=== PATIENT | female | born 1960 | race Caucasian/White ===

== ENCOUNTER 2018-08-29 11:54 | Emergency (ER) | payer SELFPAY ==
[~2018-08-29] VITALS: Ht 172.7 cm; Wt 59.0 kg
[~2018-08-29 11:54] MED LIST: CLONAZEPAM0.5 MG PO; FLAGYL500 MG PO; Ondansetron Oral Disintegratin PO; PANTOPRAZOLE SO40 MG PO; REGLAN10 MG PO; RESTORIL15 MG PO; TEMAZEPAM15 MG PO; VANCOCIN HCL250 MG PO
[2018-08-29] MEDS ORDERED: ONDANSETRON HCL INJ 2 MG/ML VIAL IV STA (12:53)
[2018-08-29] MEDS ORDERED: MAGNESIUM SULFATE 2GM/50ML 50 ML IV STA (12:53)
[2018-08-29 13:02] LABS: BASOPHILS # (AUTO) 0.1 (0.0-0.1); BASOPHILS % 1.2 % (0.0-1.0); EOSINOPHILS # (AUTO) 0.4 (0.0-0.4); EOSINOPHILS % 6.1 % (0.0-6.0); HEMATOCRIT 36.7 % (34.2-44.1); LYMPHOCYTES # (AUTO) 2.6 (1.0-3.2); LYMPHOCYTES % 43.8 % (18.0-39.1); MEAN CORPUSCULAR HEMOGLOBIN 32.3 pg (28-32); MEAN CORPUSCULAR HGB CONC 32.7 g/dL (31-35); MEAN CORPUSCULAR VOLUME 98.9 fL (81-99); MONOCYTES # (AUTO) 0.9 (0.2-0.8); NEUTROPHILS % 33.6 % (38.7-80.0); PLATELET COUNT 175 x10e3/uL (140-360); RED BLOOD COUNT 3.71 x10e6/uL (3.6-5.1); RED CELL DISTRIBUTION WIDTH 15.8 % (11.7-14.4)
[2018-08-29 13:06] LABS: INR 0.84; PROTHROMBIN TIME 12.3 seconds (11.9-14.5)
[2018-08-29 13:14] LABS: ALANINE AMINOTRANSFERASE < 6 IU/L (0-55); ALBUMIN 3.2 g/dL (3.5-5.0); ALKALINE PHOSPHATASE 83 IU/L (40-150); ANION GAP 13.4 mmol/L (8-16); BLOOD UREA NITROGEN 14 mg/dL (7-26); BUN/CREATININE RATIO 19 (6-25); CALCIUM 9.3 mg/dL (8.4-10.2); CARBON DIOXIDE 28 mmol/L (22-29); CHLORIDE 106 mmol/L (98-107); CREATININE, SERUM 0.74 mg/dL (0.57-1.11); EST GLOMERULAR FILTRATION RATE > 60 ML/MIN (60-); GLUCOSE 81 mg/dL (74-118); LIPASE 21 U/L (8-78); POTASSIUM 4.4 mmol/L (3.5-5.1); SODIUM 143 mmol/L (136-145)
--- NOTE | 2018-08-29 13:26 | Diagnostic Imaging Report ---
EXAM: XR CHEST 1 VIEW DATE: 08/29/2018 12:53 PM INDICATION: Dizziness COMPARISON: 05/28/2018, no report available FINDINGS: Lines and Tubes: None Heart and Mediastinum: No acute cardiomediastinal findings. Stable mild hilar prominence. Lungs and Pleura: Minimal left basilar opacity suggesting atelectasis and/or scarring, similar to previous study. Bones and Soft Tissues: No acute findings. IMPRESSION: 1. No acute cardiopulmonary findings. Signed by: Dr. Leonel Ibarra MD on 08/29/2018 1:23 PM
[2018-08-29 13:33] LABS: THYROID STIMULATING HORMONE 1.507 uIU/mL (0.350-4.940)
[2018-08-29 14:33] LABS: BILIRUBIN,URINE NEGATIVE (NEGATIVE); CLARITY,URINE CLEAR (CLEAR); COLOR,URINE YELLOW (YELLOW); KETONES,URINE NEGATIVE (NEGATIVE); LEUKOCYTE ESTERASE ,URINE NEGATIVE (NEGATIVE); NITRITE,URINE NEGATIVE (NEGATIVE); PROTEIN,URINE DIPSTICK NEGATIVE (NEGATIVE); URINE UROBILINOGEN 0.2 mg/dL (0.2 - 1)
[2018-08-29 14:46] LABS: BACTERIA,URINE FEW /HPF; EPITHELIAL CELLS,URINE FEW /LPF; MUCUS,URINE FEW (RARE); RBC,URINE 0-5 /HPF (0-5); WBC,URINE (MAN) 0-5 /HPF (0-5)
[2018-08-29 15:19] VITALS: BP 109/66
--- OUTSIDE RECORDS SUMMARY | 2018-08-31 14:04 | XMS REPORT | Clinical Summary ---
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 Disp. Refills Start End Date Status Date albuterol (VENTOLIN Inhale 2 Puffs by mouth 30 g 3 07/28/20 Active HFA,PROVENTIL HFA,PROAIR every 4 hours as needed 17 HFA) 90 mcg/actuation for Wheezing or Shortness inhalerIndications: of Breath. Chronic obstructive pulmonary disease with acute exacerbation Melatonin 5 mg Take 1 capsule by mouth 30 capsule 3 12/07/19 Active capIndications: at bedtime nightly. 18 Psychophysiological insomnia chlordiazePOXIDE Take 1 capsule by mouth 2 60 capsule 0 12/18/19 Active (LIBRIUM) 25 mg times daily as needed for 18 capsuleIndications: New Anxiety. onset seizure, Anxiety sertraline (ZOLOFT) 50 mg Take 1 tablet by mouth 30 tablet 1 01/20/20 Active tabletIndications: daily. 18 Anxiety disorder, unspecified type traZODone (DESYREL) 50 mg Take 1 tablet by mouth 30 tablet 1 01/20/20 Active tabletIndications: nightly at bedtime as 18 Insomnia, unspecified needed for Sleep. type temazepam (RESTORIL) 15 Take 2 capsules by mouth 60 capsule 3 05/04/20 Active mg capIndications: nightly at bedtime as 18 Psychophysiological needed for Insomnia. insomnia BOOST GLUCOSE CONTROL Take 1 Package by mouth 3 60909 mL 3 05/04/20 Active oral liquidIndications: times daily. 18 Loss of weight albuterol 90 Inhale 2 Puffs by mouth 90 g 3 05/04/20 04/29/20 Active mcg/actuation every 4 hours as needed 18 19 inhalerIndications: for up to 360 days for Chronic obstructive Wheezing or Shortness of pulmonary disease with Breath. acute exacerbation busPIRone (BUSPAR) 10 mg Take 1 tablet by mouth 3 90 tablet 1 07/28/20 12/18/19 Discontin tabletIndications: times daily as needed for 17 18 ued Anxiety state, Other (anxiety). unspecified, Insomnia, unspecified mirtazapine (REMERON) 7.5 Take 1 tablet by mouth 30 tablet 1 07/28/20 12/18/19 Discontin mg tabletIndications: nightly at bedtime as 17 18 ued Anxiety state, needed for insomnia. unspecified, Insomnia, unspecified traZODone (DESYREL) 50 mg Take 1 tablet by mouth 30 tablet 1 12/18/19 01/20/20 Discontin tabletIndications: nightly at bedtime as 18 18 ued Insomnia, unspecified needed for Sleep. type azithromycin (ZITHROMAX) Take 1 tablet by mouth 14 tablet 0 05/04/20 05/04/20 Discontin 500 mg tabletIndications: daily for 14 days. 18 18 ued Lung infection BOOST GLUCOSE CONTROL Take 1 Package by mouth 3 35551 mL 3 05/04/20 05/04/20 Discontin oral liquidIndications: times daily. 18 18 ued Loss of weight albuterol 90 Inhale 2 Puffs by mouth 3 Month 3 05/04/20 05/04/20 Discontin mcg/actuation every 4 hours as needed Supply 18 18 ued inhalerIndications: for Wheezing or Shortness Chronic obstructive of Breath. pulmonary disease with acute exacerbation azithromycin (ZITHROMAX) Take 1 tablet by mouth 14 tablet 0 05/04/20 05/18/20 500 mg tabletIndications: daily for 14 days. 18 18 Lung infection Hospital, Clinic, or Ordered Dose Route Frequency Start End Date Status Other Facility Date Administered Medication penicillin g benzathine 1.2 Million IM ONCE 05/04/20 05/04/20 Ended (BICILLIN L-A) injection Units 18 18 1.2 Million UnitsIndications: Lung infection Active Problems Problem Noted Date Troponin leak - [place] - Peak troponin 0.273 - of note, measured in 12/30/2017 setting of seizure New onset seizure - in setting of EtOH withdrawal - pt on librium (? post 12/21/2017 ictal R hemiparesis - MRI brain only with mild microvascular ischemia) Glaucoma suspect 07/14/2014 Insomnia 04/25/2008 RBC abnormality 04/25/2008 Stress 03/14/2008 Depression 03/14/2008 Tobacco abuse Trichomonal vaginitis COPD (chronic obstructive pulmonary disease) Encounters Date Type Specialty Care Team Description 07/22/2018 Pharmacy Visit 07/06/2018 Pharmacy Visit 06/30/2018 Pharmacy Visit 05/10/2018 Pharmacy Visit 05/06/2018 Pharmacy Visit 05/05/2018 Pharmacy Visit 05/04/2018 Ancillary Radiology Timothy Munoz MD Lung infection Procedure 05/04/2018 Office Visit Family Practice Timothy Munoz MD Chronic obstructive pulmonary disease with acute exacerbation (Primary Dx); Cough; Loss of weight; Psychophysiological insomnia; Tobacco abuse; Reactive depression; ETOH abuse; Lung infection 05/04/2018 Orders Only [facility] Timothy Kelley MD Loss of weight 05/04/2018 Pharmacy Visit 01/21/2018 Pharmacy Visit 01/20/2018 Pharmacy Visit 01/19/2018 Office Visit Psychiatry Riki Arboleda MD Anxiety disorder, unspecified type (Primary Dx); Insomnia, unspecified type; Alcohol use disorder, severe, in early remission 01/19/2018 Pharmacy Visit 01/15/2018 Pharmacy Visit 01/12/2018 Telephone Jennifer Covington RN Medication Problem 12/30/2017 Orders Only [facility] Carlos A Bolaños MD Elevated troponin 12/30/2017 Orders Only [facility] Carlos A Bolaños MD Elevated troponin (Primary Dx) 12/29/2017 Telephone [facility] Practice Dudley Quintero RN Medication Reaction 12/29/2017 Nurse Triage Marion Sarkar RN 12/24/2017 Orders Only [facility] Timothy Kelley MD Anxiety state; Insomnia, unspecified 12/18/2017 Office Visit Family Timothy Kelley MD Screen for colon cancer Carlos A Dave MD (Primary Dx); Encounter for screening mammogram for malignant neoplasm of breast; Preventative health care; Needs flu shot; Insomnia, unspecified type; New onset seizure; Anxiety 12/18/2017 Orders Only Family Carlos A Bolaños MD Insomnia, unspecified type; New onset seizure 12/18/2017 Pharmacy Visit 12/07/2017 Orders Only [facility] Timothy Kelley MD Psychophysiological insomnia (Primary Dx) after 08/28/2017 Immunizations Name Dates Previously Given Next Due Hepatitis B Vaccine 01/04/2010, 12/04/2009 01/04/2010 Influenza Vaccine 09/11/2011, 09/14/2008 PPD 12/20/2012, 12/04/2009 Td Tetanus, diphtheria 03/14/2008 Toxoids Vaccine Family History Medical History Relation Name Comments Cancer Father lungs Arthritis Mother Relation Name Status Comments Father lung cancer (Age 75) Mother Alive Social History Tobacco Use Types Packs/Day Years Used Date Current Every Day Smoker Cigarettes 1 40 Smokeless Tobacco: Never Used Tobacco Cessation: Ready to Quit: No; Counseling Given: Yes Alcohol Use Drinks/Week oz/Week Comments Yes 20 Standard 12.0 states she has to have it to keep calm drinks or equivalent Sex Assigned at Date Recorded Not on file Last Filed Vital Signs Vital Sign Reading Time Taken Blood Pressure 119/77 05/04/2018 12:40 PM CDT Pulse 51 05/04/2018 12:40 PM CDT Temperature 36.8 C (98.3 F) 05/04/2018 12:40 PM CDT Respiratory Rate 20 05/04/2018 12:40 PM CDT Oxygen Saturation - - Inhaled Oxygen - - Concentration Weight 54.4 kg (120 lb) 05/04/2018 12:40 PM CDT Height 170.2 cm (5' 7") 05/04/2018 12:40 PM CDT Body Mass Index 18.79 05/04/2018 12:40 PM CDT Plan of Treatment Health Maintenance Due Date Last Done Comments Breast Cancer Scrn 06/20/2010 06/20/2009, 04/25/2008 (Yearly) Cervical Cancer Scrn (3 06/20/2012 06/20/2009 Yrs) IMM Influenza Seasonal 08/16/2018 Oct to January (>/=19 yrs) Colorectal Cancer Scrn 12/24/2018 12/24/2017, 05/02/2009 Annual (FIT/FOBT) Age 50 to 75 Procedures Procedure Name Priority Date/Time Associated Diagnosis Comments XRAY CHEST 2 VIEWS Routine 05/04/2018 Lung infection Results for this 2:00 PM CDT procedure are in the results section. TSH Routine 05/04/2018 Chronic obstructive Results for this 1:35 PM CDT pulmonary disease with procedure are in the acute exacerbation results section. Cough Loss of weight Psychophysiological insomnia Tobacco abuse Reactive depression ETOH abuse HEMOGLOBIN A1C Routine 05/04/2018 Chronic obstructive Results for this 1:35 PM CDT pulmonary disease with procedure are in the acute exacerbation results section. Cough Loss of weight Psychophysiological insomnia Tobacco abuse Reactive depression ETOH abuse UREA NITROGEN/CREA Routine 05/04/2018 Chronic obstructive Results for this 1:35 PM CDT pulmonary disease with procedure are in the acute exacerbation results section. Cough Loss of weight Psychophysiological insomnia Tobacco abuse Reactive depression ETOH abuse ELECTROLYTES Routine 05/04/2018 Chronic obstructive Results for this 1:35 PM CDT pulmonary disease with procedure are in the acute exacerbation results section. Cough Loss of weight Psychophysiological insomnia Tobacco abuse Reactive depression ETOH abuse GLUCOSE, FASTING Routine 05/04/2018 Chronic obstructive Results for this 1:35 PM CDT pulmonary disease with procedure are in the acute exacerbation results section. Cough Loss of weight Psychophysiological insomnia Tobacco abuse Reactive depression ETOH abuse LIVER PROFILE Routine 05/04/2018 Chronic obstructive Results for this 1:35 PM CDT pulmonary disease with procedure are in the acute exacerbation results section. Cough Loss of weight Psychophysiological insomnia Tobacco abuse Reactive depression ETOH abuse LIPID PROFILE Routine 05/04/2018 Chronic obstructive Results for this 1:35 PM CDT pulmonary disease with procedure are in the acute exacerbation results section. Cough Loss of weight Psychophysiological insomnia Tobacco abuse Reactive depression ETOH abuse CBC Routine 05/04/2018 Chronic obstructive Results for this 1:35 PM CDT pulmonary disease with procedure are in the acute exacerbation results section. Cough Loss of weight Psychophysiological insomnia Tobacco abuse Reactive depression ETOH abuse LIVER PROFILE Routine 12/25/2017 Preventative health care Results for this 12:14 PM PATIENT PARTNER procedure are in the results section. CBC/DIFF Routine 12/25/2017 Preventative health care Results for this 12:14 PM PATIENT PARTNER procedure are in the results section. BASIC METABOLIC PANEL Routine 12/25/2017 Preventative health care Results for this 12:14 PM PATIENT PARTNER procedure are in the results section. TSH Routine 12/25/2017 Preventative health care Results for this 12:14 PM PATIENT PARTNER procedure are in the results section. FREE T4 Routine 12/25/2017 Preventative health care Results for this 12:14 PM PATIENT PARTNER procedure are in the results section. HEMOGLOBIN A1C Routine 12/25/2017 Preventative health care Results for this 12:14 PM PATIENT PARTNER procedure are in the results section. LIPID PROFILE Routine 12/25/2017 Preventative health care Results for this 12:14 PM PATIENT PARTNER procedure are in the results section. OCCULT BLOOD ICT Routine 12/24/2017 Anxiety state Results for this 1:36 PM PATIENT PARTNER Insomnia, unspecified procedure are in the results section. after 08/28/2017 Results * XRAY CHEST 2 VIEWS (05/04/2018 2:00 PM) Impressions Performed At IMPRESSION: SMS Enlarged pulmonary arteries, which can be seen in the setting of pulmonary hypertension. Minimal reticulation lung base is suspected, suggesting chronic interstitial changes. CT chest could be obtained for further evaluation if indicated. Dictated By: Esther Thorpe MD, 05/04/2018 2:01 PM I have reviewed the study and agree with the findings in this report. Signed By: Leonel Ibarra MD, 05/04/2018 2:30 PM Narrative Performed At EXAM: XRAY CHEST 2 VIEWS SMS INDICATION: tobacco abuse with chronic cough and mucus COMPARISON: Chest radiograph from 04/25/2008 FINDINGS: PA and lateral views of the chest. Lines/tubes: None. Lungs:The lungs are well inflated.There is no evidence of pneumonia or pulmonary edema. Pleura:There is no pleural effusion or pneumothorax. Heart and mediastinum:The cardiac silhouette is normal. Pulmonary arteries are enlarged. Bones and soft tissues:No acute osseous abnormality.Soft tissues are unremarkable. Procedure Note Interface, Rad/Mammog In - 05/04/2018 2:35 PM CDT EXAM: XRAY CHEST 2 VIEWS INDICATION: tobacco abuse with chronic cough and mucus COMPARISON: Chest radiograph from 04/25/2008 FINDINGS: PA and lateral views of the chest. Lines/tubes: None. Lungs: The lungs are well inflated. There is no evidence of pneumonia or pulmonary edema. Pleura: There is no pleural effusion or pneumothorax. Heart and mediastinum: The cardiac silhouette is normal. Pulmonary arteries are enlarged. Bones and soft tissues: No acute osseous abnormality. Soft tissues are unremarkable. IMPRESSION IMPRESSION: Enlarged pulmonary arteries, which can be seen in the setting of pulmonary hypertension. Minimal reticulation lung base is suspected, suggesting chronic interstitial changes. CT chest could be obtained for further evaluation if indicated. Dictated By: Esther Thorpe MD, 05/04/2018 2:01 PM I have reviewed the study and agree with the findings in this report. Signed By: Leonel Ibarra MD, 05/04/2018 2:30 PM Performing Organization Address City/State/Zipcode Phone Number SMS * HEMOGLOBIN A1C (05/04/2018 1:35 PM) Only the most recent of 2 results within the time period is included. Hemoglobin A1c 5.8 4.3 - 6.1 % BT DI[facility]NOSTIC IMMUNOLOGY Est Average Gluc 119.8 mg/dL BT [facility]MMUNOLOG[facility] Specimen Blood Performing Organization Address [facility] Phone Number MISYS BT DIAGNOSTIC IMMUNOLOG[facility] * TSH (05/04/2018 1:35 PM) Only the most recent of 2 results within the time period is included. TSH 1.35 0.57 - 3.74 uIU/mL BT MAIN-STATION 1 Specimen Blood Performing Organization Address [facility] Phone Number MISYS BT MAIN-STATION 1 * ELECTROLYTES (05/04/2018 1:35 PM) Sodium 139 136 - 145 mmol/L BT MAIN-STATION 1 Potassium 4.0 3.5 - 5.1 mmol/L BT MAIN-STATION 1 Chloride 90 (L) 98 - 107 mmol/L BT MAIN-STATION 1 CO2 32 (H) 21 - 31 mmol/L BT MAIN-STATION 1 Anion Gap 17 BT MAIN-STATION 1 Specimen Blood Performing Organization Address [facility] Phone Number MISYS BT MAIN-STATION 1 * LIVER PROFILE (05/04/2018 1:35 PM) Only the most recent of 2 results within the time period is included. T Protein 7.3 6.0 - 8.3 g/dL BT MAIN-STATION 1 Albumin 3.9 3.7 - 5.3 g/dL BT MAIN-STATION 1 T Bilirubin 0.9 0.2 - 1.2 mg/dL BT MAIN-STATION 1 Alk Phos 161 (H) 34 - 104 U/L BT MAIN-STATION 1 AST 203 (H) 13 - 39 U/L BT MAIN-STATION 1 ALT 43 7 - 52 U/L BT MAIN-STATION 1 D Bilirubin 0.3 (H) 0.0 - 0.2 mg/dL BT MAIN-STATION 1 Specimen Blood Performing Organization Address [facility] Phone Number MISYS BT MAIN-STATION 1 * LIPID PROFILE (05/04/2018 1:35 PM) Only the most recent of 2 results within the time period is included. Cholesterol 193 mg/dL BT MAIN-STATION 1 Comment: REFERENCE RANGE: Desirable: <200 mg/dL Borderline: 200-240 mg/dL High Risk: >240 mg/dL Triglyceride 88 <150 mg/dL BT MAIN-STATION 1 Comment: REFERENCE RANGE: Normal: <150 mg/dL Borderline High: 150-199 mg/dL High: 200-499 mg/dL Very High: >vb=949 mg/dL HDL 109 mg/dL BT MAIN-STATION 1 Comment: Increased CHD risk: <40 mg/dL Decreased CHD risk: >60 mg/dL LDL 66 mg/dL BT MAIN-STATION 1 Comment: REFERENCE RANGE: Optimal: <100 mg/dL Near Optimal: 100-129 mg/dL Borderline High: 130-159 mg/dL High: 160-189 mg/dL Very High: >fo=567 mg/dL Specimen Blood Performing Organization Address [facility] Phone Number MISYS MAIN-STATION 1 * GLUCOSE, FASTING (05/04/2018 1:35 PM) Glucose, Fasting 108 (H) 74 - 106 mg/dL BT MAIN-STATION 1 Specimen Blood Performing Organization Address [facility] Phone Number MISYS MAIN-STATION 1 * CBC (05/04/2018 1:35 PM) WBC 7.3 4.5 - 11.0 K/uL BT MAIN-STATION 2 RBC 4.11 (L) 4.20 - 5.40 M/uL BT MAIN-STATION 2 Hemoglobin 12.5 12.0 - 16.0 g/dL BT MAIN-STATION 2 Hematocrit 37.1 37.0 - 47.0 % BT MAIN-STATION 2 MCV 90 82 - 92 fL BT MAIN-STATION 2 MCH 30.4 27.0 - 32.0 pg BT MAIN-STATION 2 MCHC 33.7 32.0 - 36.0 g/dL BT MAIN-STATION 2 RDW 61.7 (H) 36.4 - 46.3 fL BT MAIN-STATION 2 Platelet 70 (L) 150 - 400 K/uL BT MAIN-STATION 2 Mean Platelet Volume 11.7 9.4 - 12.4 fL BT MAIN-STATION 2 Percent NRBC 0.0 BT MAIN-STATION 2 Absolute NRBC 0.00 BT MAIN-STATION 2 Specimen Blood Performing Organization Address [facility] Phone Number MISYS MAIN-STATION 2 * UREA NITROGEN/CREA (05/04/2018 1:35 PM) Urea Nitrogen 11 7 - 25 mg/dL BT MAIN-STATION 1 Creatinine 0.60 0.6 - 1.2 mg/dL BT MAIN-STATION 1 GFR, Estimated >60 mL/min/1.73 m2 BT MAIN-STATION 1 GFR, Estim, Afr-Am >60 mL/min/1.73 m2 BT MAIN-STATION 1 Specimen Other (Specify in Comments) Performing Organization Address [facility] Phone Number MISYS BT MAIN-STATION 1 * FREE T4 (12/25/2017 12:14 PM) Free T4 0.73 0.61 - 1.12 ng/dl BT OUTPATIENT DRAW 2 Comment: females: 1st Trimester-0.52-1.10 ng/dL 2nd Trimester=0.45-0.99 ng/dL 3rd Trimester=0.48-0.95 ng/dL Specimen Blood Performing Organization Address [facility] Phone Number MISYS BT OUTPATIENT DRAW 2 * CBC/DIFF (12/25/2017 12:14 PM) WBC 8.6 4.5 - 11.0 K/uL BT MAIN-STATION 2 RBC 3.62 (L) 4.20 - 5.40 M/uL BT MAIN-STATION 2 Hemoglobin 11.9 (L) 12.0 - 16.0 g/dL BT MAIN-STATION 2 Hematocrit 38.8 37.0 - 47.0 % BT MAIN-STATION 2 MCV 107 (H) 82 - 92 fL BT MAIN-STATION 2 MCH 32.9 (H) 27.0 - 32.0 pg BT MAIN-STATION 2 MCHC 30.7 (L) 32.0 - 36.0 g/dL BT MAIN-STATION 2 RDW 61.8 (H) 36.4 - 46.3 fL BT MAIN-STATION 2 Platelet 366 150 - 400 K/uL BT MAIN-STATION 2 Mean Platelet Volume 10.8 9.4 - 12.4 fL BT MAIN-STATION 2 Percent NRBC 0.0 BT MAIN-STATION 2 Absolute NRBC 0.00 BT MAIN-STATION 2 Neutrophil 62.1 34.0 - 70.0 % BT MAIN-STATION 2 Lymphocyte 22.2 20.0 - 50.0 % BT MAIN-STATION 2 Monocyte 10.4 5.0 - 12.0 % BT MAIN-STATION 2 Eosinophil 3.8 0.7 - 5.0 % BT MAIN-STATION 2 Basophil 1.0 0.1 - 1.2 % BT MAIN-STATION 2 Pct Immat Gran 0.5 0.0 - 0.5 BT MAIN-STATION 2 Neutrophil, Abs 5.35 1.56 - 6.13 K/uL BT MAIN-STATION 2 Lymphocyte, Abs 1.91 1.18 - 3.74 K/uL BT MAIN-STATION 2 Monocyte, Abs 0.90 (H) 0.24 - 0.36 K/uL BT MAIN-STATION 2 Eosinophil, Abs 0.33 0.04 - 0.36 K/uL BT MAIN-STATION 2 Basophil, Abs 0.09 (H) 0.01 - 0.08 K/uL BT MAIN-STATION 2 Absol Immat Gran 0.04 (H) 0.00 - 0.03 K/uL BT MAIN-STATION 2 Specimen Blood Performing Organization Address [facility] Phone Number MISYS BT MAIN-STATION 2 * BASIC METABOLIC PANEL (12/25/2017 12:14 PM) CO2 27.3 21 - 32 mmol/L BT MAIN-STATION 3 Chloride 106 98 - 107 mmol/L BT MAIN-STATION 3 Potassium 4.5 3.50 - 5.10 mmol/L BT MAIN-STATION 3 Sodium 141 136 - 145 mmol/L BT MAIN-STATION 3 Glucose 77 70 - 99 mg/dL BT MAIN-STATION 3 Urea Nitrogen 11 7 - 18 mg/dL BT MAIN-STATION 3 Creatinine 0.56 (L) 0.60 - 1.30 mg/dL BT MAIN-STATION 3 Anion Gap 7.7 BT MAIN-STATION 3 Calcium 9.4 8.50 - 10.20 mg/dL BT MAIN-STATION 3 GFR, Estimated >60 mL/min/1.73 m2 BT MAIN-STATION 3 GFR, Estim, Afr-Am >60 mL/min/1.73 m2 BT MAIN-STATION 3 Specimen Blood Performing Organization Address [place] Phone Number MISYS BT MAIN-STATION 3 * OCCULT BLOOD ICT (12/24/2017 1:36 PM) Occult Blood ICT Negative [facility] Specimen Stool Performing Organization Address [place] Phone Number [facility] after 08/28/2017
== END 2018-08-29 15:21 | disposition home or self-care (01) ==
LOC: ER 11:54
DX: R53.1 Weakness (principal); R42 Dizziness and giddiness; J44.9 Chronic obstructive pulmonary disease, unspecified; F10.21 Alcohol dependence, in remission; F17.210 Nicotine dependence, cigarettes, uncomplicated
CPT/HCPCS: 36415; 71045; 80053; 81001; 83690; 84443; 85025; 85610; 93005; 99284; J2405; J3475